=== PATIENT | female | born 1970 | race Caucasian/White ===

== ENCOUNTER 2018-04-15 21:33 | Emergency (ER) | payer OTHER ==
[2018-04-15 21:44] VITALS: BP 123/73
[2018-04-15] MEDS ORDERED: Cyclobenzaprine TAB* 10 MG PO ONE (21:52)
--- NOTE | 2018-04-15 21:52 | UC ---
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 Taking Diclofenac 75mg bid, here for medication to help with sleep." right handed. had a table of 30 people to serve the night this started and she had heavy trays. continues to work. pain in left lid thoracic pain. no numbing/ tingling/weakness in arm. she does not take dicolfenac and ibuprofen on same days - she is aware of risks. took 1000mgs ibuprofen 3 hrs ago without relief. -she already has an appt w/ her PCP in 2 days scheduled that she plans to keep - History of Current Complaint Chief Complaint: UCBackPain Stated Complaint: BACK PAIN Time Seen by Provider: 04/15/18 21:40 Hx Last Menstrual Period: 04/08/17 Pain Intensity: 8 - Allergies/Home Medications Allergies/Adverse Reactions: Allergies Allergy/AdvReac Type Severity Reaction Status Date / Time erythromycin base Allergy Hives Verified 04/15/18 21:45 Home Medications: Home Medications Diclofenac Sodium 75 mg PO DAILY 04/15/18 [History Confirmed 04/15/18] PMH/Surg Hx/FS Hx/Imm Hx Previously Healthy: Yes - Surgical History Surgical History: Yes Surgery Procedure, Year, and Place: gallbladder, x 1 - Social History Alcohol Use: None Substance Use Type: None Smoking Status (MU): Heavy Every Day Tobacco Smoker Type: Cigarettes Amount Used/How Often: 1 ppd Length of Time of Smoking/Using Tobacco: 20 yrs Have You Smoked in the Last Year: Yes Household Exposure Type: Cigarettes Review of Systems All Other Systems Reviewed And Are Negative: Yes Constitutional: Positive: Negative Skin: Positive: Negative Eyes: Positive: Negative ENT: Positive: Negative Respiratory: Positive: Negative Cardiovascular: Positive: Negative Gastrointestinal: Positive: Negative Genitourinary: Positive: Negative Motor: Positive: Negative Neurovascular: Positive: Negative Musculoskeletal: Positive: Myalgia Neurological: Positive: Negative Psychological: Positive: Negative Is Patient Immunocompromised?: No Physical Exam Triage Information Reviewed: Yes Appearance: Well-Appearing, No Pain Distress, Well-Nourished - very friendly and talkative Vital Signs: Initial Vital Signs Temp 97.9 F 04/15/18 21:37 Pulse 93 04/15/18 21:37 Resp 18 04/15/18 21:37 BP 123/73 04/15/18 21:37 Pulse Ox 98 04/15/18 21:37 Vital Signs Reviewed: Yes Eye Exam: Normal ENT Exam: Normal ENT: Positive: Pharynx normal Neck exam: Normal Respiratory Exam: Normal Respiratory: Positive: Lungs clear, Normal breath sounds, No respiratory distress, No accessory muscle use Cardiovascular Exam: Normal Cardiovascular: Positive: RRR Abdomen Description: Positive: Nontender, Soft Musculoskeletal: Positive: Other: - left mid thoracic back with tender spasm that reproduces pain. mobile, soft. not fixed Neurological Exam: Normal Psychological Exam: Normal Skin Exam: Normal Back Pain Course/Dx - Course Course Of Treatment: muscle spasm. 10mgs cyclobenzaprine given here. rx sent in. do not drive or operate machinery within 8 hrs of taking this. -try ice to see if it helps. should have further eval and images if sx persist. -she understood me well and is agreeable w/ plan - Differential Dx/Diagnosis Differential Diagnosis/HQI/PQRI: Herniated Disc, Strain, Sprain Provider Diagnoses: thoracic muscle spasm Discharge - Sign-Out/Discharge Documenting (check all that apply): Patient Departure All imaging exams completed and their final reports reviewed: No Studies - Discharge Plan Condition: Stable Disposition: HOME Prescriptions: Cyclobenzaprine TAB* [Flexeril 10 MG TAB*] 10 mg PO DAILY PRN 5 Days #5 tab PRN Reason: Pain Patient Education Materials: Muscle Strain (ED) Referrals: Eliseo Bunch [Primary Care Provider] - 2 Days Additional Instructions: Try ice/heat on your back. Do not take diclofenac and ibuprofen together. Do not take more than 800mgs ibuprofen per dose. - Billing Disposition and Condition Condition: STABLE Disposition: Home
== END 2018-04-15 22:04 | disposition home or self-care (01) ==
LOC: UCCORT 21:33
DX: M62.830 Muscle spasm of back (principal); Z88.1 Allergy status to other antibiotic agents; F17.210 Nicotine dependence, cigarettes, uncomplicated
CPT/HCPCS: 99212; A9270-GY; G0463